=== PATIENT | female | born 1975 | race Two or more races ===

== ENCOUNTER 2017-11-18 11:28 | Inpatient (IN) | payer BC, MEDICAID ==
[~2017-11-18] VITALS: Ht 165.1 cm; Wt 92.3 kg
[2017-11-18] MEDS: LACTATED RINGERS 1,000 ML IV SCH (11:00)
[2017-11-18 11:52] LABS: MICROSCOPIC AUTO
[2017-11-18 12:00] VITALS: BP 169/103
[2017-11-18 12:04] LABS: CREATININE,URINE RANDOM 31.2 mg/dL
[2017-11-18 12:11] LABS: BASOPHILS # (AUTO) 0.03 x10^3/uL (0-0.1); BASOPHILS % (AUTO) 0 % (0-1); EOSINOPHILS # (AUTO) 0.07 x10^3/uL (0-0.4); EOSINOPHILS % (AUTO) 1 % (1-7); LYMPHOCYTES # (AUTO) 2.52 x10^3/uL (1-3.4); LYMPHOCYTES % (AUTO) 24 % (22-44); MD NO; MEAN CORPUSCULAR HEMOGLOBIN 31.3 pg (27.0-34.8); MEAN CORPUSCULAR HGB CONC 33.8 g/dL (32.4-35.8); MEAN CORPUSCULAR VOLUME 92.6 fL (80-100); MEAN PLATELET VOLUME 8.7 fL (7.4-10.4); MONOCYTES # (AUTO) 0.72 x10^3/uL (0.2-0.8); MONOCYTES % (AUTO) 7 % (2-9); NEUTROPHILS # (AUTO) 7.31 x10^3/uL (1.8-6.8); NEUTROPHILS % (AUTO) 69 % (42-75); PLATELET COUNT 274 x10^3/uL (130-400); RED BLOOD COUNT 4.25 x10^6/uL (3.82-5.3); RED CELL DISTRIBUTION WIDTH 14.3 % (9.6-15.2)
[2017-11-18 12:27] LABS: ALBUMIN 2.8 g/dL (3.4-5.0); ANION GAP 9 mmol/L (5-15); CALCIUM 8.9 mg/dL (8.5-10.1); CHLORIDE 107 mmol/L (98-107)
[2017-11-18 12:30] LABS: ALANINE AMINOTRANSFERASE 32 U/L (12-78); ALKALINE PHOSPHATASE 65 U/L (45-117); BILIRUBIN,TOTAL 0.4 mg/dL (0.2-1.0); CREATININE 0.61 mg/dL (0.55-1.02)
[2017-11-18 12:32] LABS: BILIRUBIN, DIRECT < 0.1 mg/dL (0.1-0.2)
[2017-11-18] MEDS ORDERED: LABETALOL 200 MG TABLET ONE ×2 (13:58→21:55)
[2017-11-18] MEDS: LABETALOL 200 MG TABLET PO SCH ×2 (14:00→21:57)
[2017-11-18] MEDS ORDERED: ACETAMINOPHEN 325 MG TABLET ONE ×2 (16:39→21:56)
[2017-11-18] MEDS: ACETAMINOPHEN 325 MG TABLET PO PRN ×2 (16:42→21:58)
[2017-11-18] MEDS ORDERED: LABETALOL 5MG/ML, 20ML ONE (19:22)
[2017-11-18] MEDS ORDERED: hydrALAzine 20 MG/ML, 1ML IVPush ONE (19:30)
[2017-11-18] MEDS ORDERED: LABETALOL 20 MG/4 ML IVPush ONE (19:30)
[2017-11-18] MEDS ORDERED: LABETALOL 5MG/ML, 20ML IVPush ONE ×2 (19:30)
[2017-11-19] MEDS ORDERED: LABETALOL 5MG/ML, 20ML IVPush ONE (03:30)
[2017-11-19] MEDS: LACTATED RINGERS 1,000 ML IV SCH ×2 (05:18→11:00)
[2017-11-19] MEDS ORDERED: LABETALOL 200 MG TABLET ONE ×2 (05:26→22:17)
[2017-11-19] MEDS: LABETALOL 200 MG TABLET PO SCH (05:28)
[2017-11-19 07:00] VITALS: BP 161/89
[2017-11-19] MEDS ORDERED: LABETALOL 100 MG TABLET ONE ×2 (07:16→22:17)
[2017-11-19] MEDS ORDERED: LABETALOL 100 MG TABLET PO ONE (07:30)
[2017-11-19] MEDS ORDERED: hydrALAzine 20 MG/ML, 1ML ONE (10:56)
[2017-11-19] MEDS ORDERED: hydrALAzine 20 MG/ML, 1ML IVPush ONE ×3 (11:00)
[2017-11-19] MEDS ORDERED: ACETAMINOPHEN 325 MG TABLET ONE (12:05)
[2017-11-19] MEDS: ACETAMINOPHEN 325 MG TABLET PO PRN (12:12)
[2017-11-19] MEDS: LABETALOL 300 MG TABLET PO SCH ×2 (13:43→22:34)
[2017-11-19 14:30] VITALS: BP 161/96
[2017-11-19 15:30] VITALS: BP 151/92
[2017-11-19 20:46] VITALS: BP 181/95
[2017-11-19 21:00] VITALS: BP_SYST 139; BP_SYST 153; BP_DIAS 93
[2017-11-20 02:14] VITALS: BP 145/82
[2017-11-20 05:47] LABS: BASOPHILS # (AUTO) 0.04 x10^3/uL (0-0.1); BASOPHILS % (AUTO) 0 % (0-1); EOSINOPHILS # (AUTO) 0.16 x10^3/uL (0-0.4); EOSINOPHILS % (AUTO) 1 % (1-7); LYMPHOCYTES # (AUTO) 2.59 x10^3/uL (1-3.4); LYMPHOCYTES % (AUTO) 23 % (22-44); MD NO; MEAN CORPUSCULAR HEMOGLOBIN 32.1 pg (27.0-34.8); MEAN CORPUSCULAR HGB CONC 34.4 g/dL (32.4-35.8); MEAN CORPUSCULAR VOLUME 93.2 fL (80-100); MONOCYTES # (AUTO) 0.85 x10^3/uL (0.2-0.8); MONOCYTES % (AUTO) 8 % (2-9); NEUTROPHILS # (AUTO) 7.61 x10^3/uL (1.8-6.8); NEUTROPHILS % (AUTO) 68 % (42-75); PLATELET COUNT 261 x10^3/uL (130-400); RED CELL DISTRIBUTION WIDTH 14.3 % (9.6-15.2)
[2017-11-20 06:00] LABS: ALBUMIN 2.6 g/dL (3.4-5.0); ANION GAP 11 mmol/L (5-15); CALCIUM 8.7 mg/dL (8.5-10.1); CHLORIDE 110 mmol/L (98-107)
[2017-11-20] MEDS: LABETALOL 300 MG TABLET PO SCH ×3 (06:04→20:53)
[2017-11-20 07:33] VITALS: BP 161/100
[2017-11-20 12:36] VITALS: BP 158/89
[2017-11-20 19:45] VITALS: BP 176/98
[2017-11-20] MEDS: niFEDipine ER 30 MG TABLET.ER PO SCH (22:12)
[2017-11-21 02:00] VITALS: BP 143/81
[2017-11-21] MEDS: LABETALOL 300 MG TABLET PO SCH ×2 (05:38→14:00)
[2017-11-21] MEDS: ACETAMINOPHEN 325 MG TABLET PO PRN (05:39)
[2017-11-21 07:05] VITALS: BP 121/83
[2017-11-21] MEDS: niFEDipine ER 30 MG TABLET.ER PO SCH (08:58)
[2017-11-21 12:55] VITALS: BP 137/86
[2017-11-21] MEDS ORDERED: NIFE10CA PO (15:18)
[2017-11-21] MEDS ORDERED: LABE300T2 PO (15:19)
[2017-11-21] MEDS ORDERED: ACET325C5 PO (15:21)
== END 2017-11-21 16:00 | disposition home or self-care (01) | DRG 781 ==
LOC: LDOP 11:28 → LDIP 12:15 → 5SO 11-19 13:43 → OBSVTOIN 11-19 14:58
PROVIDERS: ADMIT Obstetrics & Gynecology; ATTEND Internal Medicine
DX: O16.2 Unspecified maternal hypertension, second trimester (principal); I16.1 Hypertensive emergency; O25.12 Malnutrition in pregnancy, second trimester; O29.42 Spinal and epidural anesthesia induced headache during pregnancy, second trimester; R51 Headache; O26.892 Other specified pregnancy related conditions, second trimester; E88.09 Other disorders of plasma-protein metabolism, not elsewhere classified; O09.522 Supervision of elderly multigravida, second trimester; Z3A.20 20 weeks gestation of pregnancy; Z79.899 Other long term (current) drug therapy; Z82.49 Family history of ischemic heart disease and other diseases of the circulatory system; Z90.49 Acquired absence of other specified parts of digestive tract
CPT/HCPCS: 36415; 80048; 80053; 81001; 81050; 82040; 82248; 82570; 84156; 84550; 85025; 93005; 93306; 93975; G0378; J0360; J3490; J7120

== ENCOUNTER 2017-12-26 20:42 | Inpatient (IN) | payer BC, MEDICAID ==
[~2017-12-26] VITALS: Ht 165.1 cm; Wt 90.2 kg
[~2017-12-26 20:42] MED LIST: ACET325C5 PO; LABE300T2 PO; NIFE10CA PO
[2017-12-26 20:52] VITALS: BP 163/91
[2017-12-26 21:09] VITALS: BP 165/93
[2017-12-26 21:22] VITALS: BP 159/90
[2017-12-26] MEDS ORDERED: BETAMETHASONE 6 MG/ML, 5ML IM SCH (21:30)
[2017-12-26] MEDS ORDERED: ZOLPIDEM 5MG TABLET PO PRN (21:30)
[2017-12-26] MEDS: ASPIRIN 81 MG TABLET EC HOMEMEDPO SCH (21:30)
[2017-12-26 21:36] LABS: BASOPHILS # (AUTO) 0.02 x10^3/uL (0-0.1); BASOPHILS % (AUTO) 0 % (0-1); EOSINOPHILS % (AUTO) 1 % (1-7); LYMPHOCYTES # (AUTO) 3.36 x10^3/uL (1-3.4); LYMPHOCYTES % (AUTO) 34 % (22-44); MD NO; MEAN CORPUSCULAR HEMOGLOBIN 31.9 pg (27.0-34.8); MEAN CORPUSCULAR HGB CONC 34.6 g/dL (32.4-35.8); MEAN CORPUSCULAR VOLUME 92.1 fL (80-100); MEAN PLATELET VOLUME 8.4 fL (7.4-10.4); MONOCYTES # (AUTO) 0.77 x10^3/uL (0.2-0.8); MONOCYTES % (AUTO) 8 % (2-9); NEUTROPHILS % (AUTO) 57 % (42-75); PLATELET COUNT 245 x10^3/uL (130-400); RED BLOOD COUNT 3.96 x10^6/uL (3.82-5.3); RED CELL DISTRIBUTION WIDTH 13.4 % (9.6-15.2)
[2017-12-26 21:37] VITALS: BP 154/88
[2017-12-26 21:41] LABS: MICROSCOPIC INDICATED
[2017-12-26 21:45] LABS: ALANINE AMINOTRANSFERASE 37 U/L (12-78); ALBUMIN 2.7 g/dL (3.4-5.0); ANION GAP 10 mmol/L (5-15); CALCIUM 8.6 mg/dL (8.5-10.1); CHLORIDE 108 mmol/L (98-107); CREATININE 0.72 mg/dL (0.55-1.02)
[2017-12-26 21:48] LABS: ALKALINE PHOSPHATASE 100 U/L (45-117); BILIRUBIN,TOTAL 0.1 mg/dL (0.2-1.0); TOTAL PROTEIN 6.6 g/dL (6.4-8.2)
[2017-12-26 21:52] VITALS: BP 157/90
[2017-12-26 21:52] LABS: CREATININE,URINE RANDOM 47.7 mg/dL
[2017-12-26] MEDS: LABETALOL 200 MG TABLET HOMEMEDPO SCH (22:00)
[2017-12-26] MEDS ORDERED: LABETALOL 200 MG TABLET PO SCH (22:00)
[2017-12-26 23:30] VITALS: BP 144/83
[2017-12-27] MEDS ORDERED: ASPI-515 PO (00:21)
[2017-12-27 02:20] VITALS: BP 135/84
[2017-12-27] MEDS ORDERED: ACETAMINOPHEN 325 MG TABLET ONE ×3 (04:11→21:42)
[2017-12-27] MEDS: ACETAMINOPHEN 325 MG TABLET PO PRN ×3 (04:14→21:42)
[2017-12-27] MEDS: LABETALOL 200 MG TABLET HOMEMEDPO SCH ×3 (05:25→21:00)
[2017-12-27] MEDS ORDERED: BETAMETHASONE 6 MG/ML, 5ML IM ONE (07:23)
[2017-12-27] MEDS: BETAMETHASONE 6 MG/ML, 5ML IM SCH (07:27)
[2017-12-27] MEDS: niFEDipine ER 60 MG TABLET.ER PO SCH (09:00)
[2017-12-27] MEDS: PRENATAL VIT/IRON/FA 1 EACH TABLET HOMEMEDPO SCH (09:00)
[2017-12-27] MEDS ORDERED: INSULIN LISPRO 100 UNITS/ML, PEN SQ-INSULIN STA (18:19)
[2017-12-27] MEDS: ASPIRIN 81 MG TABLET EC HOMEMEDPO SCH (21:00)
[2017-12-27] MEDS ORDERED: ZOLPIDEM 5MG TABLET ONE (21:36)
[2017-12-27] MEDS: SODIUM CHLORIDE FLUSH 3ML SYRINGE IVF SCH (21:43)
[2017-12-28] MEDS: LABETALOL 200 MG TABLET HOMEMEDPO SCH ×3 (05:47→22:01)
[2017-12-28] MEDS: BETAMETHASONE 6 MG/ML, 5ML IM SCH (07:21)
[2017-12-28] MEDS: SODIUM CHLORIDE FLUSH 3ML SYRINGE IVF SCH ×2 (07:32→22:03)
[2017-12-28 07:35] VITALS: BP 141/82
[2017-12-28] MEDS ORDERED: INSULIN NPH HUMAN 100 UNIT/ML, 3ML VIAL SQ-INSULIN ONE ×2 (08:00→22:00)
[2017-12-28] MEDS: PRENATAL VIT/IRON/FA 1 EACH TABLET HOMEMEDPO SCH (09:00)
[2017-12-28] MEDS: niFEDipine ER 60 MG TABLET.ER PO SCH (09:00)
[2017-12-28] MEDS ORDERED: INSULIN LISPRO 100 UNITS/ML, PEN SQ-INSULIN SCH (11:00)
[2017-12-28 11:13] VITALS: BP 152/84
[2017-12-28 15:36] VITALS: BP 142/80
[2017-12-28] MEDS ORDERED: INSULIN LISPRO 100 UNITS/ML, PEN SQ-INSULIN ONE ×4 (16:00→18:37)
[2017-12-28] MEDS ORDERED: hydrALAzine 20 MG/ML, 1ML ONE (23:14)
[2017-12-28] MEDS ORDERED: hydrALAzine 20 MG/ML, 1ML IV ONE (23:30)
[2017-12-29 05:24] LABS: BASOPHILS # (AUTO) 0.02 x10^3/uL (0-0.1); BASOPHILS % (AUTO) 0 % (0-1); EOSINOPHILS # (AUTO) 0.01 x10^3/uL (0-0.4); EOSINOPHILS % (AUTO) 0 % (1-7); LYMPHOCYTES # (AUTO) 2.52 x10^3/uL (1-3.4); LYMPHOCYTES % (AUTO) 19 % (22-44); MD NO; MEAN CORPUSCULAR HEMOGLOBIN 31.6 pg (27.0-34.8); MEAN CORPUSCULAR HGB CONC 33.7 g/dL (32.4-35.8); MEAN CORPUSCULAR VOLUME 93.9 fL (80-100); MEAN PLATELET VOLUME 8.7 fL (7.4-10.4); MONOCYTES # (AUTO) 0.64 x10^3/uL (0.2-0.8); MONOCYTES % (AUTO) 5 % (2-9); NEUTROPHILS # (AUTO) 10.46 x10^3/uL (1.8-6.8); NEUTROPHILS % (AUTO) 77 % (42-75); PLATELET COUNT 275 x10^3/uL (130-400); RED BLOOD COUNT 3.99 x10^6/uL (3.82-5.3); RED CELL DISTRIBUTION WIDTH 13.6 % (9.6-15.2)
[2017-12-29 05:32] LABS: ALBUMIN 2.9 g/dL (3.4-5.0); ANION GAP 9 mmol/L (5-15); CALCIUM 8.6 mg/dL (8.5-10.1); CHLORIDE 108 mmol/L (98-107)
[2017-12-29 05:56] LABS: ALANINE AMINOTRANSFERASE 43 U/L (12-78); ALKALINE PHOSPHATASE 87 U/L (45-117); BILIRUBIN,TOTAL 0.2 mg/dL (0.2-1.0); CREATININE 0.73 mg/dL (0.55-1.02)
[2017-12-29] MEDS: LABETALOL 200 MG TABLET HOMEMEDPO SCH ×3 (06:00→21:35)
[2017-12-29] MEDS ORDERED: INSULIN NPH HUMAN 100 UNIT/ML, 3ML VIAL SQ-INSULIN ONE (07:00)
[2017-12-29] MEDS ORDERED: INSULIN LISPRO 100 UNITS/ML, PEN SQ-INSULIN SCH (07:00)
[2017-12-29 07:43] VITALS: BP 144/76
[2017-12-29] MEDS: niFEDipine ER 60 MG TABLET.ER PO SCH (09:00)
[2017-12-29] MEDS: PRENATAL VIT/IRON/FA 1 EACH TABLET HOMEMEDPO SCH (09:00)
[2017-12-29] MEDS: SODIUM CHLORIDE FLUSH 3ML SYRINGE IVF SCH ×2 (09:52→21:00)
[2017-12-29] MEDS ORDERED: SODIUM CHLORIDE NASAL SPRAY 45ML BOTTLE NAS PRN (13:00)
[2017-12-29] MEDS ORDERED: hydrALAzine 20 MG/ML, 1ML ONE (17:14)
[2017-12-29] MEDS ORDERED: LABETALOL 5MG/ML, 20ML ONE (17:25)
[2017-12-29] MEDS ORDERED: INSULIN LISPRO 100 UNITS/ML, PEN SQ-INSULIN ONE (17:30)
[2017-12-29] MEDS ORDERED: hydrALAzine 20 MG/ML, 1ML IV ONE (17:30)
[2017-12-29] MEDS ORDERED: LABETALOL 5MG/ML, 20ML IVPush ONE ×2 (17:30→18:30)
[2017-12-29] MEDS ORDERED: ACETAMINOPHEN 325 MG TABLET ONE (19:36)
[2017-12-29] MEDS: ACETAMINOPHEN 325 MG TABLET PO PRN (19:37)
[2017-12-29] MEDS: ASPIRIN 81 MG TABLET EC HOMEMEDPO SCH (21:29)
[2017-12-29] MEDS ORDERED: LABETALOL 200 MG TABLET ONE (21:34)
[2017-12-30] MEDS: LABETALOL 200 MG TABLET HOMEMEDPO SCH ×3 (06:00→22:00)
[2017-12-30 06:03] LABS: CHLORIDE 111 mmol/L (98-107)
[2017-12-30 06:15] LABS: ALANINE AMINOTRANSFERASE 46 U/L (12-78); ALBUMIN 2.7 g/dL (3.4-5.0); ALKALINE PHOSPHATASE 83 U/L (45-117); ANION GAP 9 mmol/L (5-15); BILIRUBIN,TOTAL 0.3 mg/dL (0.2-1.0); CALCIUM 8.3 mg/dL (8.5-10.1); TOTAL PROTEIN 6.6 g/dL (6.4-8.2)
[2017-12-30] MEDS ORDERED: INSULIN NPH HUMAN 100 UNIT/ML, 3ML VIAL SQ-INSULIN ONE (07:30)
[2017-12-30] MEDS ORDERED: INSULIN LISPRO 100 UNITS/ML, PEN SQ-INSULIN ONE (07:30)
[2017-12-30 07:34] VITALS: BP 159/85
[2017-12-30] MEDS: PRENATAL VIT/IRON/FA 1 EACH TABLET HOMEMEDPO SCH (09:00)
[2017-12-30] MEDS: niFEDipine ER 90 MG TAB.ER.24 PO SCH (09:21)
[2017-12-30] MEDS: SODIUM CHLORIDE FLUSH 3ML SYRINGE IVF SCH ×2 (10:24→19:24)
[2017-12-30] MEDS ORDERED: D5%-LACTATED RINGERS 1,000 ML IV SCH (10:30)
[2017-12-30 14:39] LABS: ALANINE AMINOTRANSFERASE 48 U/L (12-78); ALBUMIN 2.8 g/dL (3.4-5.0); ANION GAP 7 mmol/L (5-15); CALCIUM 8.6 mg/dL (8.5-10.1); CHLORIDE 110 mmol/L (98-107)
[2017-12-30 14:42] LABS: ALKALINE PHOSPHATASE 85 U/L (45-117); BILIRUBIN,TOTAL 0.2 mg/dL (0.2-1.0); CREATININE 0.76 mg/dL (0.55-1.02); TOTAL PROTEIN 6.7 g/dL (6.4-8.2)
[2017-12-30] MEDS ORDERED: CALCIUM CARBONATE 500 MG TAB.CHEW ONE (19:21)
[2017-12-30] MEDS: CALCIUM CARBONATE 500 MG TAB.CHEW PO PRN (19:24)
[2017-12-30 20:28] LABS: ALANINE AMINOTRANSFERASE 47 U/L (12-78); ALBUMIN 2.7 g/dL (3.4-5.0); ANION GAP 8 mmol/L (5-15); CALCIUM 8.4 mg/dL (8.5-10.1); CHLORIDE 109 mmol/L (98-107); CREATININE 0.82 mg/dL (0.55-1.02)
[2017-12-30 20:31] LABS: ALKALINE PHOSPHATASE 87 U/L (45-117); BILIRUBIN,TOTAL 0.2 mg/dL (0.2-1.0); TOTAL PROTEIN 6.6 g/dL (6.4-8.2)
[2017-12-30 20:43] VITALS: BP 145/85
[2017-12-30] MEDS: ASPIRIN 81 MG TABLET EC HOMEMEDPO SCH (21:00)
[2017-12-30] MEDS ORDERED: NEWBORN KIT ONE (21:23)
[2017-12-31] MEDS: LABETALOL 200 MG TABLET HOMEMEDPO SCH ×3 (06:00→22:00)
[2017-12-31 06:02] VITALS: BP 169/90
[2017-12-31 06:15] LABS: BASOPHILS # (AUTO) 0.04 x10^3/uL (0-0.1); BASOPHILS % (AUTO) 0 % (0-1); EOSINOPHILS # (AUTO) 0.01 x10^3/uL (0-0.4); EOSINOPHILS % (AUTO) 0 % (1-7); LYMPHOCYTES # (AUTO) 3.22 x10^3/uL (1-3.4); LYMPHOCYTES % (AUTO) 28 % (22-44); MD NO; MEAN CORPUSCULAR HEMOGLOBIN 31.7 pg (27.0-34.8); MEAN CORPUSCULAR HGB CONC 34.1 g/dL (32.4-35.8); MEAN PLATELET VOLUME 8.3 fL (7.4-10.4); MONOCYTES # (AUTO) 0.97 x10^3/uL (0.2-0.8); MONOCYTES % (AUTO) 8 % (2-9); NEUTROPHILS # (AUTO) 7.47 x10^3/uL (1.8-6.8); NEUTROPHILS % (AUTO) 64 % (42-75); PLATELET COUNT 260 x10^3/uL (130-400); RED BLOOD COUNT 3.87 x10^6/uL (3.82-5.3); RED CELL DISTRIBUTION WIDTH 13.6 % (9.6-15.2)
[2017-12-31 06:27] LABS: ALANINE AMINOTRANSFERASE 41 U/L (12-78); ALBUMIN 2.5 g/dL (3.4-5.0); ANION GAP 8 mmol/L (5-15); CALCIUM 8.3 mg/dL (8.5-10.1); CHLORIDE 110 mmol/L (98-107)
[2017-12-31 06:30] LABS: ALKALINE PHOSPHATASE 80 U/L (45-117); BILIRUBIN,TOTAL 0.4 mg/dL (0.2-1.0); CREATININE 0.63 mg/dL (0.55-1.02); TOTAL PROTEIN 6.2 g/dL (6.4-8.2)
[2017-12-31 07:23] VITALS: BP 146/85
[2017-12-31] MEDS: PRENATAL VIT/IRON/FA 1 EACH TABLET HOMEMEDPO SCH (08:30)
[2017-12-31] MEDS: SODIUM CHLORIDE FLUSH 3ML SYRINGE IVF SCH ×2 (08:43→20:47)
[2017-12-31] MEDS: niFEDipine ER 90 MG TAB.ER.24 PO SCH (09:43)
[2017-12-31 12:23] VITALS: BP 164/91
[2017-12-31 18:17] VITALS: BP 136/77
[2017-12-31] MEDS ORDERED: ACETAMINOPHEN 325 MG TABLET ONE (20:45)
[2017-12-31] MEDS: ACETAMINOPHEN 325 MG TABLET PO PRN (20:46)
[2017-12-31] MEDS: ASPIRIN 81 MG TABLET EC HOMEMEDPO SCH (21:00)
[2018-01-01 05:20] LABS: ALBUMIN 2.5 g/dL (3.4-5.0); ANION GAP 10 mmol/L (5-15); CALCIUM 7.9 mg/dL (8.5-10.1); CHLORIDE 108 mmol/L (98-107)
[2018-01-01 05:21] LABS: BASOPHILS # (AUTO) 0.02 x10^3/uL (0-0.1); BASOPHILS % (AUTO) 0 % (0-1); EOSINOPHILS # (AUTO) 0.03 x10^3/uL (0-0.4); EOSINOPHILS % (AUTO) 0 % (1-7); LYMPHOCYTES % (AUTO) 27 % (22-44); MD NO; MEAN CORPUSCULAR HEMOGLOBIN 31.8 pg (27.0-34.8); MEAN CORPUSCULAR HGB CONC 34.3 g/dL (32.4-35.8); MEAN CORPUSCULAR VOLUME 92.7 fL (80-100); MEAN PLATELET VOLUME 8.2 fL (7.4-10.4); MONOCYTES # (AUTO) 0.81 x10^3/uL (0.2-0.8); MONOCYTES % (AUTO) 7 % (2-9); NEUTROPHILS # (AUTO) 7.42 x10^3/uL (1.8-6.8); NEUTROPHILS % (AUTO) 65 % (42-75); PLATELET COUNT 237 x10^3/uL (130-400); RED BLOOD COUNT 3.85 x10^6/uL (3.82-5.3); RED CELL DISTRIBUTION WIDTH 13.6 % (9.6-15.2)
[2018-01-01 05:25] LABS: ALANINE AMINOTRANSFERASE 45 U/L (12-78); ALKALINE PHOSPHATASE 86 U/L (45-117); BILIRUBIN,TOTAL 0.3 mg/dL (0.2-1.0); CREATININE 0.67 mg/dL (0.55-1.02); TOTAL PROTEIN 6.2 g/dL (6.4-8.2)
[2018-01-01] MEDS: LABETALOL 200 MG TABLET HOMEMEDPO SCH ×3 (06:00→21:36)
[2018-01-01 08:07] VITALS: BP 147/71
[2018-01-01] MEDS ORDERED: niFEDipine ER 30 MG TABLET.ER ONE (08:43)
[2018-01-01] MEDS ORDERED: niFEDipine ER 60 MG TABLET.ER PO ONE (08:44)
[2018-01-01] MEDS: niFEDipine ER 90 MG TAB.ER.24 PO SCH (08:47)
[2018-01-01] MEDS: PRENATAL VIT/IRON/FA 1 EACH TABLET HOMEMEDPO SCH (08:48)
[2018-01-01] MEDS: SODIUM CHLORIDE FLUSH 3ML SYRINGE IVF SCH ×2 (08:48→20:53)
[2018-01-01 08:58] VITALS: BP 147/81
[2018-01-01] MEDS ORDERED: DOCUSATE 100 MG CAPSULE ONE (14:03)
[2018-01-01] MEDS: DOCUSATE 100 MG CAPSULE PO SCH (14:05)
[2018-01-01 19:31] VITALS: BP 143/79
[2018-01-01] MEDS: ASPIRIN 81 MG TABLET EC HOMEMEDPO SCH (20:53)
[2018-01-02 01:24] VITALS: BP 156/85
[2018-01-02 05:55] VITALS: BP 143/82
[2018-01-02] MEDS: LABETALOL 200 MG TABLET HOMEMEDPO SCH ×2 (05:59→18:50)
[2018-01-02] MEDS: niFEDipine ER 90 MG TAB.ER.24 PO SCH (09:00)
[2018-01-02] MEDS: PRENATAL VIT/IRON/FA 1 EACH TABLET HOMEMEDPO SCH (09:00)
[2018-01-02] MEDS ORDERED: niFEDipine ER 60 MG TABLET.ER PO ONE (09:24)
[2018-01-02] MEDS ORDERED: niFEDipine ER 30 MG TABLET.ER ONE (09:24)
[2018-01-02] MEDS: SODIUM CHLORIDE FLUSH 3ML SYRINGE IVF SCH (21:00)
[2018-01-02] MEDS: ASPIRIN 81 MG TABLET EC HOMEMEDPO SCH (21:00)
[2018-01-03] MEDS: LABETALOL 200 MG TABLET HOMEMEDPO SCH ×3 (02:52→20:57)
[2018-01-03 05:11] LABS: ALBUMIN 2.5 g/dL (3.4-5.0); ANION GAP 12 mmol/L (5-15); CALCIUM 8.5 mg/dL (8.5-10.1); CHLORIDE 108 mmol/L (98-107)
[2018-01-03 05:16] LABS: ALANINE AMINOTRANSFERASE 39 U/L (12-78); ALKALINE PHOSPHATASE 90 U/L (45-117); BILIRUBIN,TOTAL 0.3 mg/dL (0.2-1.0); CREATININE 0.55 mg/dL (0.55-1.02)
[2018-01-03] MEDS: SODIUM CHLORIDE FLUSH 3ML SYRINGE IVF SCH ×2 (08:52→20:58)
[2018-01-03] MEDS: niFEDipine ER 90 MG TAB.ER.24 PO SCH (08:52)
[2018-01-03] MEDS ORDERED: DOCUSATE 100 MG CAPSULE ONE (08:55)
[2018-01-03] MEDS: PRENATAL VIT/IRON/FA 1 EACH TABLET HOMEMEDPO SCH (08:57)
[2018-01-03] MEDS: DOCUSATE 100 MG CAPSULE PO SCH (08:57)
[2018-01-03] MEDS: ASPIRIN 81 MG TABLET EC HOMEMEDPO SCH (20:57)
[2018-01-04] MEDS: LABETALOL 200 MG TABLET HOMEMEDPO SCH ×3 (06:10→22:00)
[2018-01-04 08:28] LABS: ALBUMIN 2.4 g/dL (3.4-5.0); ANION GAP 9 mmol/L (5-15); CALCIUM 8.4 mg/dL (8.5-10.1); CHLORIDE 108 mmol/L (98-107)
[2018-01-04 08:32] LABS: ALANINE AMINOTRANSFERASE 37 U/L (12-78); ALKALINE PHOSPHATASE 91 U/L (45-117); BILIRUBIN,TOTAL 0.4 mg/dL (0.2-1.0); CREATININE 0.54 mg/dL (0.55-1.02); TOTAL PROTEIN 6.2 g/dL (6.4-8.2)
[2018-01-04] MEDS ORDERED: niFEDipine ER 60 MG TABLET.ER PO ONE (08:58)
[2018-01-04] MEDS ORDERED: niFEDipine ER 30 MG TABLET.ER ONE (08:58)
[2018-01-04] MEDS: niFEDipine ER 90 MG TAB.ER.24 PO SCH (09:00)
[2018-01-04] MEDS: PRENATAL VIT/IRON/FA 1 EACH TABLET HOMEMEDPO SCH (09:00)
[2018-01-04 11:34] VITALS: BP 128/73
[2018-01-04] MEDS ORDERED: DOCUSATE 100 MG CAPSULE ONE (11:37)
[2018-01-04] MEDS: DOCUSATE 100 MG CAPSULE PO SCH (11:38)
[2018-01-04] MEDS: SODIUM CHLORIDE FLUSH 3ML SYRINGE IVF SCH (21:00)
[2018-01-04] MEDS: ASPIRIN 81 MG TABLET EC HOMEMEDPO SCH (21:05)
[2018-01-05] MEDS: LABETALOL 200 MG TABLET HOMEMEDPO SCH ×3 (06:10→22:00)
[2018-01-05] MEDS ORDERED: DOCUSATE 100 MG CAPSULE ONE (08:56)
[2018-01-05] MEDS: PRENATAL VIT/IRON/FA 1 EACH TABLET HOMEMEDPO SCH (08:57)
[2018-01-05] MEDS: DOCUSATE 100 MG CAPSULE PO SCH (08:58)
[2018-01-05] MEDS: SODIUM CHLORIDE FLUSH 3ML SYRINGE IVF SCH ×2 (08:58→21:45)
[2018-01-05] MEDS: niFEDipine ER 90 MG TAB.ER.24 PO SCH (08:58)
[2018-01-05] MEDS ORDERED: ACETAMINOPHEN 325 MG TABLET ONE (19:12)
[2018-01-05] MEDS: ACETAMINOPHEN 325 MG TABLET PO PRN (19:47)
[2018-01-05] MEDS: ASPIRIN 81 MG TABLET EC HOMEMEDPO SCH (21:00)
[2018-01-06] MEDS ORDERED: D5%-LACTATED RINGERS 1,000 ML IV SCH (00:13)
[2018-01-06] MEDS: D5%-LACTATED RINGERS 1,000 ML IV SCH ×2 (00:19→08:02)
[2018-01-06] MEDS: LABETALOL 200 MG TABLET HOMEMEDPO SCH ×3 (05:49→20:26)
[2018-01-06 08:00] VITALS: BP 144/85
[2018-01-06] MEDS ORDERED: DOCUSATE 100 MG CAPSULE ONE (08:14)
[2018-01-06] MEDS ORDERED: PRENATAL VIT/IRON/FA 1 EACH TABLET ONE (08:14)
[2018-01-06] MEDS: SODIUM CHLORIDE FLUSH 3ML SYRINGE IVF SCH (09:00)
[2018-01-06] MEDS: PRENATAL VIT/IRON/FA 1 EACH TABLET HOMEMEDPO SCH (09:03)
[2018-01-06] MEDS: DOCUSATE 100 MG CAPSULE PO SCH (09:03)
[2018-01-06] MEDS: niFEDipine ER 90 MG TAB.ER.24 PO SCH (09:03)
[2018-01-06] MEDS ORDERED: ACETAMINOPHEN 325 MG TABLET ONE (19:27)
[2018-01-06] MEDS: ACETAMINOPHEN 325 MG TABLET PO PRN (19:30)
[2018-01-06] MEDS: ASPIRIN 81 MG TABLET EC HOMEMEDPO SCH (21:00)
[2018-01-07] MEDS: LABETALOL 200 MG TABLET HOMEMEDPO SCH ×3 (02:51→19:30)
[2018-01-07 05:48] LABS: ALBUMIN 2.4 g/dL (3.4-5.0); ANION GAP 8 mmol/L (5-15); CALCIUM 8.4 mg/dL (8.5-10.1); CHLORIDE 110 mmol/L (98-107)
[2018-01-07 05:52] LABS: ALANINE AMINOTRANSFERASE 37 U/L (12-78); ALKALINE PHOSPHATASE 99 U/L (45-117); BILIRUBIN,TOTAL 0.2 mg/dL (0.2-1.0); CREATININE 0.62 mg/dL (0.55-1.02); TOTAL PROTEIN 6.2 g/dL (6.4-8.2)
[2018-01-07 05:59] LABS: BASOPHILS # (AUTO) 0.03 x10^3/uL (0-0.1); BASOPHILS % (AUTO) 0 % (0-1); EOSINOPHILS # (AUTO) 0.07 x10^3/uL (0-0.4); EOSINOPHILS % (AUTO) 1 % (1-7); LYMPHOCYTES # (AUTO) 3.09 x10^3/uL (1-3.4); LYMPHOCYTES % (AUTO) 34 % (22-44); MD NO; MEAN CORPUSCULAR HEMOGLOBIN 32.3 pg (27.0-34.8); MEAN CORPUSCULAR HGB CONC 34.4 g/dL (32.4-35.8); MEAN CORPUSCULAR VOLUME 93.8 fL (80-100); MEAN PLATELET VOLUME 8.1 fL (7.4-10.4); MONOCYTES # (AUTO) 0.73 x10^3/uL (0.2-0.8); MONOCYTES % (AUTO) 8 % (2-9); NEUTROPHILS # (AUTO) 5.19 x10^3/uL (1.8-6.8); NEUTROPHILS % (AUTO) 57 % (42-75); PLATELET COUNT 207 x10^3/uL (130-400); RED BLOOD COUNT 4.03 x10^6/uL (3.82-5.3); RED CELL DISTRIBUTION WIDTH 13.6 % (9.6-15.2)
[2018-01-07 09:00] VITALS: BP 160/92
[2018-01-07] MEDS: niFEDipine ER 90 MG TAB.ER.24 PO SCH (10:13)
[2018-01-07] MEDS ORDERED: DOCUSATE 100 MG CAPSULE ONE (10:16)
[2018-01-07] MEDS: DOCUSATE 100 MG CAPSULE PO SCH (10:17)
[2018-01-08] MEDS: LABETALOL 200 MG TABLET HOMEMEDPO SCH ×3 (03:08→21:00)
[2018-01-08] MEDS ORDERED: DOCUSATE 100 MG CAPSULE ONE (08:49)
[2018-01-08] MEDS ORDERED: niFEDipine ER 90 MG TAB.ER.24 ONE (08:49)
[2018-01-08] MEDS: niFEDipine ER 90 MG TAB.ER.24 PO SCH (08:54)
[2018-01-08] MEDS: PRENATAL VIT/IRON/FA 1 EACH TABLET HOMEMEDPO SCH (09:00)
[2018-01-08] MEDS ORDERED: MAGNESIUM SULF. PMX 20GM/500ML 500 ML IV ONE ×2 (12:57→22:25)
[2018-01-08] MEDS ORDERED: LACTATED RINGERS 1,000 ML IV SCH ×2 (13:00→13:28)
[2018-01-08] MEDS ORDERED: OXYTOCIN 30U/ 0.9% NaCL 500ML 500 ML IV SCH (13:28)
[2018-01-08] MEDS ORDERED: LACTATED RINGERS 1,000 ML IVBOLUS ONE (13:30)
[2018-01-08] MEDS ORDERED: ONDANSETRON 2MG/ML, 2ML IVPush ONE (13:30)
[2018-01-08] MEDS ORDERED: MAGNESIUM SULFATE PMX 4GM/100M 100 ML IVPB ONE (13:30)
[2018-01-08] MEDS ORDERED: SODIUM CITRATE/CITRIC ACID 30 ML UDC PO ONE (13:30)
[2018-01-08] MEDS ORDERED: ONDANSETRON ODT 8 MG ONE (13:39)
[2018-01-08] MEDS ORDERED: ONDANSETRON 8 MG TABLET PO ONE (14:00)
[2018-01-08 14:51] LABS: BASOPHILS # (AUTO) 0.03 x10^3/uL (0-0.1); BASOPHILS % (AUTO) 0 % (0-1); EOSINOPHILS # (AUTO) 0.08 x10^3/uL (0-0.4); EOSINOPHILS % (AUTO) 1 % (1-7); LYMPHOCYTES # (AUTO) 3.73 x10^3/uL (1-3.4); LYMPHOCYTES % (AUTO) 34 % (22-44); MD NO; MEAN CORPUSCULAR HEMOGLOBIN 32.4 pg (27.0-34.8); MEAN CORPUSCULAR HGB CONC 34.5 g/dL (32.4-35.8); MEAN PLATELET VOLUME 8.2 fL (7.4-10.4); MONOCYTES % (AUTO) 6 % (2-9); NEUTROPHILS # (AUTO) 6.44 x10^3/uL (1.8-6.8); NEUTROPHILS % (AUTO) 59 % (42-75); PLATELET COUNT 231 x10^3/uL (130-400); RED CELL DISTRIBUTION WIDTH 13.5 % (9.6-15.2)
[2018-01-08] MEDS ORDERED: METOCLOPRAMIDE 5 MG/ML, 2ML ONE (16:05)
[2018-01-08] MEDS ORDERED: SODIUM CITRATE/CITRIC ACID 30 ML UDC ONE (16:05)
[2018-01-08] MEDS ORDERED: MISOPROSTOL 200 MCG TABLET ONE ×2 (16:08→16:42)
[2018-01-08] MEDS ORDERED: METOCLOPRAMIDE 5 MG/ML, 2ML IV ONE (16:30)
[2018-01-08] MEDS ORDERED: morphine SULFATE/PF 0.5 MG/ML, 10ML ONE (16:49)
[2018-01-08] MEDS: LACTATED RINGERS 1,000 ML IV SCH (16:59)
[2018-01-08] MEDS ORDERED: METHYLERGONOVINE 0.2 MG/ML IM PRN (17:00)
[2018-01-08] MEDS ORDERED: ONDANSETRON 2MG/ML, 2ML IV PRN (17:00)
[2018-01-08] MEDS ORDERED: CARBOPROST TROMETHAMINE 250 MCG/ML, 1ML IM PRN (17:00)
[2018-01-08] MEDS ORDERED: ACETAMINOPHEN 325 MG TABLET PO PRN (17:00)
[2018-01-08] MEDS ORDERED: MISOPROSTOL 200 MCG TABLET PR PRN (17:00)
[2018-01-08] MEDS ORDERED: morphine SULFATE 10 MG/ML, 1ML IVPush PRN ×2 (17:00)
[2018-01-08] MEDS ORDERED: OXYTOCIN 30U/ 0.9% NaCL 500ML 500 ML ONE (17:12)
[2018-01-08] MEDS ORDERED: ONDANSETRON 2MG/ML, 2ML ONE (18:46)
[2018-01-08] MEDS ORDERED: EPHEDRINE 50 MG/ML, 1ML ONE (18:46)
[2018-01-08] MEDS ORDERED: CEFAZOLIN 1,000 MG ONE (18:46)
[2018-01-08] MEDS ORDERED: PHENYLEPHRINE 10 MG/ML ONE (18:46)
[2018-01-08] MEDS ORDERED: OXYTOCIN 10 UNITS/ML, 1ML ONE (18:46)
[2018-01-08] MEDS ORDERED: WATER-INJECTION,STERILE 10 ML IV ONE (18:46)
[2018-01-08] MEDS ORDERED: OXYcodone 5 MG/5 ML ORAL.SOL UDC ONE (19:20)
[2018-01-08] MEDS ORDERED: KETOROLAC 30 MG/1 ML ONE (19:20)
[2018-01-08] MEDS ORDERED: OXYcodone 5 MG/5 ML ORAL.SOL UDC PO PRN (19:30)
[2018-01-08] MEDS ORDERED: KETOROLAC 30 MG/1 ML IVPush ONE (19:30)
[2018-01-08] MEDS ORDERED: OXYcodone 5 MG/5 ML ORAL.SOL UDC PO ONE (20:00)
[2018-01-08] MEDS ORDERED: ONDANSETRON ODT 4 MG ONE (20:52)
[2018-01-08] MEDS ORDERED: ONDANSETRON ODT 4 MG PO PRN (21:00)
[2018-01-08] MEDS: MAGNESIUM SULF. PMX 20GM/500ML 500 ML IV SCH (22:33)
[2018-01-09] MEDS: LACTATED RINGERS 1,000 ML IV SCH ×7 (00:59→22:59)
[2018-01-09] MEDS ORDERED: KETOROLAC 30 MG/1 ML ONE ×3 (01:07→13:48)
[2018-01-09] MEDS ORDERED: OXYcodone/APAP 5/325MG TABLET ONE ×4 (01:07→18:49)
[2018-01-09] MEDS: OXYcodone/APAP 5/325MG TABLET PO PRN ×4 (01:10→18:50)
[2018-01-09] MEDS ORDERED: KETOROLAC 30 MG/1 ML IM SCH (01:30)
[2018-01-09 02:16] LABS: BASOPHILS # (AUTO) 0.04 x10^3/uL (0-0.1); BASOPHILS % (AUTO) 0 % (0-1); EOSINOPHILS # (AUTO) 0.01 x10^3/uL (0-0.4); EOSINOPHILS % (AUTO) 0 % (1-7); LYMPHOCYTES # (AUTO) 2.87 x10^3/uL (1-3.4); LYMPHOCYTES % (AUTO) 21 % (22-44); MD NO; MEAN CORPUSCULAR HEMOGLOBIN 32.6 pg (27.0-34.8); MEAN CORPUSCULAR HGB CONC 34.5 g/dL (32.4-35.8); MEAN CORPUSCULAR VOLUME 94.6 fL (80-100); MEAN PLATELET VOLUME 8.1 fL (7.4-10.4); MONOCYTES # (AUTO) 0.83 x10^3/uL (0.2-0.8); MONOCYTES % (AUTO) 6 % (2-9); NEUTROPHILS # (AUTO) 10.03 x10^3/uL (1.8-6.8); NEUTROPHILS % (AUTO) 73 % (42-75); PLATELET COUNT 202 x10^3/uL (130-400); RED BLOOD COUNT 3.99 x10^6/uL (3.82-5.3); RED CELL DISTRIBUTION WIDTH 13.7 % (9.6-15.2)
[2018-01-09] MEDS: LABETALOL 200 MG TABLET HOMEMEDPO SCH ×3 (05:51→21:53)
[2018-01-09 07:50] VITALS: BP 151/88
[2018-01-09] MEDS ORDERED: DOCUSATE 100 MG CAPSULE ONE (08:26)
[2018-01-09] MEDS ORDERED: MAGNESIUM SULF. PMX 20GM/500ML 500 ML IV ONE (08:26)
[2018-01-09] MEDS ORDERED: niFEDipine ER 90 MG TAB.ER.24 ONE (08:26)
[2018-01-09] MEDS: niFEDipine ER 90 MG TAB.ER.24 PO SCH (08:29)
[2018-01-09] MEDS: DOCUSATE 100 MG CAPSULE PO SCH (08:29)
[2018-01-09] MEDS: KETOROLAC 30 MG/1 ML IV SCH ×2 (08:30→13:55)
[2018-01-09] MEDS: MAGNESIUM SULF. PMX 20GM/500ML 500 ML IV SCH (08:35)
[2018-01-09] MEDS: SODIUM CHLORIDE FLUSH 3ML SYRINGE IVF SCH ×2 (08:36→21:00)
[2018-01-09] MEDS: PRENATAL VIT/IRON/FA 1 EACH TABLET HOMEMEDPO SCH ×2 (08:36→09:00)
[2018-01-09] MEDS: PRENATAL VIT/IRON/FA 1 EACH TABLET PO SCH (09:00)
[2018-01-09] MEDS ORDERED: CALCIUM CARBONATE 500 MG TAB.CHEW ONE (17:23)
[2018-01-09] MEDS: CALCIUM CARBONATE 500 MG TAB.CHEW PO PRN (17:27)
[2018-01-09 20:20] VITALS: BP 138/82
[2018-01-09] MEDS: IBUPROFEN 800 MG TABLET PO PRN (20:37)
[2018-01-09] MEDS: DOCUSATE 100 MG CAPSULE PO PRN (20:37)
[2018-01-09] MEDS: OXYTOCIN 30U/ 0.9% NaCL 500ML 500 ML IV SCH (22:59)
[2018-01-10] VITALS (7 sets, daily range): BP systolic 107–133; BP diastolic 67–78
[2018-01-10] MEDS: LACTATED RINGERS 1,000 ML IV SCH ×5 (00:59→17:05)
[2018-01-10] MEDS: OXYcodone/APAP 5/325MG TABLET PO PRN ×5 (01:42→22:11)
[2018-01-10] MEDS: IBUPROFEN 800 MG TABLET PO PRN ×2 (05:56→17:45)
[2018-01-10] MEDS: LABETALOL 200 MG TABLET HOMEMEDPO SCH ×3 (05:57→22:12)
[2018-01-10] MEDS: OXYTOCIN 30U/ 0.9% NaCL 500ML 500 ML IV SCH ×2 (08:16→17:05)
[2018-01-10] MEDS: DOCUSATE 100 MG CAPSULE PO PRN ×2 (08:33→22:12)
[2018-01-10] MEDS: niFEDipine ER 90 MG TAB.ER.24 PO SCH (08:34)
[2018-01-10] MEDS: PRENATAL VIT/IRON/FA 1 EACH TABLET HOMEMEDPO SCH (08:36)
[2018-01-10] MEDS: SODIUM CHLORIDE FLUSH 3ML SYRINGE IVF SCH ×2 (08:36→21:00)
[2018-01-10] MEDS: PRENATAL VIT/IRON/FA 1 EACH TABLET PO SCH (08:37)
[2018-01-10] MEDS: SIMETHICONE 80 MG CHEW TAB PO PRN (20:59)
[2018-01-11] VITALS (9 sets, daily range): BP systolic 110–166; BP diastolic 71–94
[2018-01-11] MEDS: LACTATED RINGERS 1,000 ML IV SCH ×5 (00:59→16:28)
[2018-01-11] MEDS: OXYcodone/APAP 5/325MG TABLET PO PRN ×5 (04:09→20:59)
[2018-01-11] MEDS: IBUPROFEN 800 MG TABLET PO PRN ×3 (04:09→20:59)
[2018-01-11] MEDS: SIMETHICONE 80 MG CHEW TAB PO PRN ×2 (04:09→22:43)
[2018-01-11] MEDS: OXYTOCIN 30U/ 0.9% NaCL 500ML 500 ML IV SCH (04:59)
[2018-01-11] MEDS: LABETALOL 200 MG TABLET HOMEMEDPO SCH (06:20)
[2018-01-11] MEDS: DOCUSATE 100 MG CAPSULE PO PRN ×2 (08:43→20:59)
[2018-01-11] MEDS: PRENATAL VIT/IRON/FA 1 EACH TABLET HOMEMEDPO SCH (09:00)
[2018-01-11] MEDS: SODIUM CHLORIDE FLUSH 3ML SYRINGE IVF SCH ×2 (09:00→20:58)
[2018-01-11] MEDS: PRENATAL VIT/IRON/FA 1 EACH TABLET PO SCH (09:00)
[2018-01-11] MEDS ORDERED: DIPH,PERTUSS(ACELL),TET VAC/PF NC IM-VACC ONE ×3 (16:15→21:16)
[2018-01-11] MEDS ORDERED: LABETALOL 200 MG TABLET PO SCH (18:00)
[2018-01-11] MEDS ORDERED: LABETALOL 300 MG TABLET PO SCH (18:00)
[2018-01-12] MEDS: LACTATED RINGERS 1,000 ML IV SCH ×6 (00:59→20:59)
[2018-01-12 01:30] VITALS: BP 154/90
[2018-01-12] MEDS: OXYcodone/APAP 5/325MG TABLET PO PRN ×4 (01:33→19:31)
[2018-01-12] MEDS ORDERED: MAGNESIUM HYDROXIDE 8%, 30ML UDC PO PRN (06:00)
[2018-01-12 06:08] VITALS: BP 170/98
[2018-01-12] MEDS: IBUPROFEN 800 MG TABLET PO PRN ×3 (06:08→22:25)
[2018-01-12] MEDS: LABETALOL 200 MG TABLET PO SCH ×3 (06:08→22:00)
[2018-01-12 06:28] VITALS: BP 157/89
[2018-01-12 07:18] VITALS: BP 142/86
[2018-01-12] MEDS: PRENATAL VIT/IRON/FA 1 EACH TABLET PO SCH (07:50)
[2018-01-12] MEDS: niFEDipine ER 30 MG TABLET.ER PO SCH (08:26)
[2018-01-12] MEDS: SODIUM CHLORIDE FLUSH 3ML SYRINGE IVF SCH ×2 (08:27→22:26)
[2018-01-12] MEDS: DOCUSATE 100 MG CAPSULE PO PRN ×2 (08:27→19:31)
[2018-01-12] MEDS: PRENATAL VIT/IRON/FA 1 EACH TABLET HOMEMEDPO SCH (08:27)
[2018-01-12 12:18] VITALS: BP 141/79
[2018-01-12 19:35] VITALS: BP 151/84
[2018-01-12] MEDS: SIMETHICONE 80 MG CHEW TAB PO PRN (19:35)
[2018-01-13 00:25] VITALS: BP 153/88
[2018-01-13] MEDS: OXYcodone/APAP 5/325MG TABLET PO PRN ×4 (00:28→12:44)
[2018-01-13] MEDS: LACTATED RINGERS 1,000 ML IV SCH ×3 (00:59→08:59)
[2018-01-13 05:00] VITALS: BP 149/90
[2018-01-13] MEDS: LABETALOL 200 MG TABLET PO SCH (06:30)
[2018-01-13] MEDS: IBUPROFEN 800 MG TABLET PO PRN ×2 (06:36→14:23)
[2018-01-13 07:18] VITALS: BP 163/94
[2018-01-13] MEDS ORDERED: DOCU-131 PO (07:27)
[2018-01-13] MEDS ORDERED: IBUP-1222 PO (07:27)
[2018-01-13] MEDS ORDERED: IRON (07:28)
[2018-01-13] MEDS ORDERED: NIFE10CA PO (07:38)
[2018-01-13] MEDS ORDERED: OXYC-302 PO (07:39)
[2018-01-13 07:55] VITALS: BP 162/98
[2018-01-13] MEDS: PRENATAL VIT/IRON/FA 1 EACH TABLET HOMEMEDPO SCH (08:46)
[2018-01-13] MEDS: niFEDipine ER 30 MG TABLET.ER PO SCH (08:46)
[2018-01-13] MEDS: PRENATAL VIT/IRON/FA 1 EACH TABLET PO SCH (08:46)
[2018-01-13] MEDS: SODIUM CHLORIDE FLUSH 3ML SYRINGE IVF SCH (09:00)
[2018-01-13 09:54] VITALS: BP 153/95
== END 2018-01-13 13:25 | disposition home or self-care (01) | DRG 765 ==
LOC: LDIP 20:42 → 2NE 01-08 20:16 → 2NW 01-09 20:08
PROVIDERS: ADMIT Obstetrics & Gynecology; ATTEND Obstetrics & Gynecology
PROC: 10D00Z0 Extraction of Products of Conception, High, Open Approach (ICD-10-PCS; principal; 2018-01-08)
PROC: 0UB70ZZ Excision of Bilateral Fallopian Tubes, Open Approach (ICD-10-PCS; 2018-01-08)
PROC: 0UB90ZX Excision of Uterus, Open Approach, Diagnostic (ICD-10-PCS; 2018-01-08)
DX: O11.4 Pre-existing hypertension with pre-eclampsia, complicating childbirth (principal); O41.02X0 Oligohydramnios, second trimester, not applicable or unspecified; O36.5920 Maternal care for other known or suspected poor fetal growth, second trimester, not applicable or unspecified; O10.92 Unspecified pre-existing hypertension complicating childbirth; Z37.0 Single live birth; O24.420 Gestational diabetes mellitus in childbirth, diet controlled; O32.8XX0 Maternal care for other malpresentation of fetus, not applicable or unspecified; Z3A.27 27 weeks gestation of pregnancy; Z90.49 Acquired absence of other specified parts of digestive tract; O09.522 Supervision of elderly multigravida, second trimester; Z30.2 Encounter for sterilization; O76 Abnormality in fetal heart rate and rhythm complicating labor and delivery
CPT/HCPCS: 36415; J7121; 76815; 76819; 80053; 81001; 81050; 82570; 82803; 82951; 82962; 83735; 84156; 84550; 85025; 86850; 86900; 88302; 88305; 90715; G0378; J0690; J0702; J1815; J1885; J2274; J2405; Q0162; J0360; J2370; J2590; J2765; J3475; J7120